=== PATIENT | female | born 1995 | race Caucasian/White ===

== ENCOUNTER 2021-10-12 00:18 | Day surgery (SDC) | payer OTHER, SELFPAY ==
[2021-10-11 15:03] VITALS: BMI 29.0
--- NOTE | 2021-10-11 15:03 | PC.NURSE ---
Report to the Outpatient Waiting Room, entrance under the green pavilion located off [facility], at time 0800 on date _10/12/21. OR Time: __1000 . - You and your visitor will be asked a series of questions to screen for COVID 19 for your protection. - Only one visitor is allowed at this time. - The patient visitor is requested to leave or wait in car when not with patient. - A mask is required within the hospital. Patients may have clear liquids (water, carbonated beverages, clear teas, apple juice) until 3 hours prior to surgery with a maximum of 20 ounces. - No food from midnight until time of surgery - Infants may have breast milk until 4 hours before surgery, formula 6 hours prior to surgery. - Children will be allowed to drink immediately following surgery. If applicable, please bring a bottle or sippy cup to assist with drinking. Juice, water, soda, and popsicles are readily available. For infants on formula, please bring formula the day of surgery. Pacifiers are allowed. Take the following medications with a SIP of water the morning of surgery: __BUPROPION, FLUEXETINE, PAIN MEDICATION IF NEEDED Medications to discontinue per physician NONE Date to take last dose Please no make-up, nail faroese, hairspray, perfume, deodorant, or body powder the day of surgery. No jewelry (including any body piercings) or valuables the day of surgery, leave them at home. Please take a shower or bath the night before, or the morning of, surgery with an antibacterial soap. Wear comfortable, loose fitting clothing. Children are encouraged to wear pajamas. - Jewelry must be removed prior to entering the operating room. Rings and piercings that are not removed may be cut off. - The hospital will not accept responsibility for valuables. - Please leave all valuables, including medications, at home the day of surgery. If you are going home after surgery, a licensed class b driver must drive you home. - NO public transportation without another adult. - We recommend that an adult stay with you for 24 hours following discharge. - We also recommend that you do not drive, make important decision, drink alcoholic beverages, or take any drugs that were not prescribed by your health care provider for at least 24 hours after your discharge time. For Pediatric surgeries, we recommend two adults accompany the child home (only one inside the building at this time). Follow any additional instructions given to you from your surgeon. If you or anyone in your household have experienced Covid symptoms in the past week, please notify your surgeon or the nurse liaison at the phone number below for possible testing. Telephone instructions given to PATIENT____and asked if any additional questions and then verbalized understanding. Patient advised to call surgeon office or pre surgery nurse liaison [phone] if any additional questions.
[2021-10-12] MEDS: ACETAMINOPHEN 500 MG TABLET 1000 MG PO (09:15)
[2021-10-12] MEDS: LACTATED RINGERS 1,000 ML 30 ML IV CONT (09:15)
[2021-10-12 09:19] VITALS: BP 124/80; PULSE 70; RESP 14; TEMP 36.8; O2SAT 100
--- NOTE | 2021-10-12 09:22 | P.PNAN_ITS ---
Anes - Initial Pre Proc Eval Procedure: Operation Date: 10/12/21 10:00 Proposed Procedures p Suction Dilatation and Curettage - Brandon Engel MD Date/Time: 10/12/21 09:22 Surgeon: Brandon Engel MD Pre Op Diagnosis: missed AB Patient Data Age: 26 Gender: F Height: 1.57 m Weight: 72 kg Allergies Allergy/AdvReac Type Severity Reaction Status Date / Time No Known Allergies Allergy Verified 10/11/21 14:53 Home Medications Medication Instructions Recorded Confirmed Type bupropion HCl 200 mg tablet,12 hr 200 mg PO BID 10/11/21 10/11/21 History sustained-release clonazepam 1 mg tablet 1 mg PO PRN PRN Anxiety 10/11/21 10/11/21 History fluoxetine 20 mg capsule 20 mg PO DAILY 10/11/21 10/11/21 History hydrocodone 5 mg-acetaminophen 325 1 tablet PO Q6-12H PRN Pain 10/11/21 10/11/21 History mg tablet quetiapine 100 mg tablet 150 mg PO HS PRN Sleep 10/11/21 10/11/21 History topiramate 100 mg tablet 100 mg PO BID 10/11/21 10/11/21 History Patient hx anesthesia problems: none Family hx anesthesia problems: none Results Review: All pre-operative results and documents have been reviewed as part of the pre- operative evaluation. [facility] Past Medical History Medical History ADHD Anxiety Bipolar disorder Depression Hx of migraines Social History Social History Smoking packs per day: 1 Smoking cigarettes per day: 20.0 Years smoked: 4 Smoking pack-years: 4.00 Smoking status: Former smoker Tobacco type: cigarettes Additional smoking assessment comments: MAR 2020 Alcohol intake: current Alcohol use details: 2 PER MONTH Substance use type: marijuana Other substance usage details: DAILY TO EVERY OTHER DAY Living arrangements: with family Anes - Eval Final PreProcedure Day of Procedure 10/12/21 09:22 Patient weight: obese Heart: regular rate and rhythm Lungs: clear to auscultation Airway: Mallampati scale class II Neurological: alert and oriented Last oral intake: >/= 8 hours ASA classification: III Emergent: no Anesthetic plan: proceed Anesthesia type and monitoring: general GIVS and standard monitoring Results Review: All pre-operative results and documents have been reviewed as part of the pre- operative evaluation. Informed Consent: The patient's anesthetic plan and its attendant risks and benefits were discussed with the patient/family/POA. Questions were solicited and answers provided to the satisfaction of the patient/family/POA.
[2021-10-12] MEDS: MIDAZOLAM HCL (*CRX) 2 MG/2 ML VIAL IV PUSH (09:31)
--- NOTE | 2021-10-12 09:48 | SUR.PREOP ---
DR BRYSON HAS WAIVED Rho IMMUNE GLOBULIN ORDER, PT IS CONFIRMED O+ BLOOD TYPE.
--- NOTE | 2021-10-12 09:49 | WPDHPUPDATE1 ---
History and Physical Update Update Date/Time: 10/12/21 09:49 History and Physical has been reviewed, including an updated exam of the patient. There are NO changes in the patient's condition. Risks, benefits, and alternatives have been discussed and questions answered. Patient agrees to proceed with procedure.
[2021-10-12] MEDS: LIDOCAINE HCL 1% PF 30 ML VIAL INFILTRATE (10:14)
[2021-10-12 10:23] VITALS: BP 104/63; PULSE 65; RESP 14; O2SAT 98
--- NOTE | 2021-10-12 10:35 | W.PM.PROC2 ---
Procedure Note - Detailed Date of Procedure 10/12/21 Pre-op Diagnosis missed AB Post-op Diagnosis Same Procedure Performed Suction D&C Surgeon Brandon Engel MD Anesthesia MAC Indications missed Findings normal-appearing vulva vagina and cervix to. Moderate amount of products conception within the uterus. 8 cm uterus Description of Procedure the patient was taken the operating room. She was prepped and draped in dorsal lithotomy position after induction of mac anesthesia. A speculum was placed in the vagina. Cervix grasped with tenaculum. The cervix was dilated to about 1 cm Using Arreguin dilators. A 8. Croatian curved curette was used to perform suction D&C. The curette was introduced and vacuum was applied. The curette was removed over all surfaces of the intrauterine cavity multiple times. This was done until all the surfaces were clear and had the familiar grainy texture they can be felt through the instrument. A sharp curette was then used to curettage all the surfaces. The suction cup was then reapplied 1 more time to remove any debris. The instruments were removed. The speculum and tenaculum were removed. The patient tolerated the procedure well. She was taken recovery room stable condition. Estimated Blood Loss -75.0 Drains No Packing No Pathology Yes Complications No immediate complications Condition Stable Disposition PACU
[2021-10-12 10:45] VITALS: BP 119/79; PULSE 60; RESP 20
[2021-10-12] MEDS: oxyCODONE HCL (*CRX) 5 MG TAB IR PO (10:48)
[2021-10-12 11:05] VITALS: BP 116/80; PULSE 75; RESP 20
== END 2021-10-12 11:11 | disposition home or self-care (01) ==
PROVIDERS: Visit Provider Obstetrics & Gynecology
PROC: (CPT 59820; principal; 2021-10-12 10:00)
DX: O02.1 Missed abortion (principal); F41.9 Anxiety disorder, unspecified; F90.9 Attention-deficit hyperactivity disorder, unspecified type; Z87.891 Personal history of nicotine dependence; F32.A Depression, unspecified; F31.9 Bipolar disorder, unspecified; F12.90 Cannabis use, unspecified, uncomplicated; J45.909 Unspecified asthma, uncomplicated
CPT/HCPCS: 59820; 88305; A9270; J2250; J2704; J3010; J7120

== ENCOUNTER 2022-12-06 09:47 | Outpatient (CLI) | payer OTHER, SELFPAY ==
[2022-12-06 11:22] LABS: Hematocrit 32.6 % (37.0-47.0); Hemoglobin 10.5 g/dL (12.0-15.0)
[2022-12-06 11:29] LABS: Glucose 1 Hour PP 50gm Dose 124 mg/dL
[2022-12-06 12:09] LABS: HIV 1/2 Ab P24 Ag Result Negative (Negative)
== END 2022-12-06 09:48 | disposition home or self-care (01) ==
PROVIDERS: Visit Provider Obstetrics & Gynecology
DX: O36.0130 Maternal care for anti-D [Rh] antibodies, third trimester, not applicable or unspecified (principal); Z36.89 Encounter for other specified antenatal screening
CPT/HCPCS: 36415; 82947; 85014; 85018; 85461; 86703; 86850; 86900; 86901; G0432

== ENCOUNTER 2023-02-18 11:45 | Outpatient (CLI) | payer OTHER, SELFPAY ==
[2023-02-18 13:03] LABS: Hematocrit 34.4 % (37.0-47.0); Hemoglobin 10.5 g/dL (12.0-15.0); Mean Corpuscular HGB Conc 30.5 g/dl (32-36); Mean Corpuscular Hemoglobin 24.6 pg (26-34); Mean Corpuscular Volume 80.6 fl (80-100); Mean Platelet Volume 11.2 fl (7.4-10.4); Platelet Count Result 336 k/mm3 (150-375); Red Blood Count 4.27 M/mm3 (4.2-5.4); Red Cell Distribution Width 15.8 % (11.5-14.5); White Blood Count 7.4 K/mm3 (4.5-10.0)
[2023-02-20 13:17] LABS: Rapid Plasma Reagin Non-Reactive (NonReactive)
== END 2023-02-18 11:46 | disposition home or self-care (01) ==
LOC: ANHLAB 11:47
PROVIDERS: Visit Provider Obstetrics & Gynecology
DX: Z34.93 Encounter for supervision of normal pregnancy, unspecified, third trimester (principal); Z3A.00 Weeks of gestation of pregnancy not specified
CPT/HCPCS: 36415; 85027; 86592; 86850; 86900; 86901

== ENCOUNTER 2023-02-20 05:30 | Inpatient (IN) | payer OTHER, SELFPAY ==
[2023-02-20] VITALS (76 sets, daily range): BP systolic 81–165; BP diastolic 20–127; PULSE 59–136; RESP 14–19; TEMP 36.5–37.3; O2SAT 96–100; BMI 40.3
[2023-02-20] MEDS: LACTATED RINGERS 1,000 ML 999 ML IV CONT ×2 (06:17→07:25)
--- NOTE | 2023-02-20 06:25 | LDADM ---
This patient, Viviana Aleman, was admitted to Labor/Delivery/Recovery 120 on 02/20/23 at 05:30. Plans for labor, pain management and were discussed with patient. Patient/family oriented to hospital policies and general routines including ID bracelet, bed and alarms, visiting hours, pain management, procedures, bathroom and other care routines, personal items, smoking policy, room service/diet and guest tray routines, infant security routines, and visiting hours. Patient/Family are encouraged to report perceived risks to care and to ask questions if they do not understand what they are told or what they should do. See OBIX for further documentation.
--- NOTE | 2023-02-20 07:11 | P.PNAN_ITS ---
Anes - Initial Pre Proc Eval Procedure: Operation Date: 02/20/23 07:30 Proposed Procedures p Section with Bilateral Tubal Ligation - Brandon Engel MD Date/Time: 02/20/23 07:11 Surgeon: Sanford Lorenz MD Pre Op Diagnosis: C/S Patient Data Age: 27 Gender: F Height: 1.57 m Weight: 100 kg Last Vital Signs Pulse 78 02/20/23 06:46 BP 126/66 02/20/23 06:46 O2 Del Method Room Air 02/20/23 06:20 Allergies Allergy/AdvReac Type Severity Reaction Status Date / Time No Known Allergies Allergy Verified 10/12/21 09:33 Home Medications Medication Instructions Recorded Confirmed Type fluoxetine 20 mg capsule 20 mg PO BID 10/11/21 02/20/23 History quetiapine 100 mg tablet 50 mg PO HS PRN Sleep 10/11/21 02/20/23 History buspirone 15 mg tablet 15 mg PO DAILY 01/30/23 02/20/23 History prenat.vits,mikal,tpz-fcsw-foqgc 1 tablet PO DAILY 01/30/23 02/20/23 History famotidine 20 mg tablet 20 mg PO DAILY 02/20/23 02/20/23 History Patient hx anesthesia problems: none Family hx anesthesia problems: none Results Review: All pre-operative results and documents have been reviewed as part of the pre- operative evaluation. [facility] Past Medical History Medical History ADHD Anxiety Bipolar disorder Depression Hx of migraines Family History Family History Grandparent Pancreatic cancer Grandparent Throat cancer Mouth cancer Social History Social History Smoking packs per day: 1 Smoking cigarettes per day: 20.0 Years smoked: 4 Smoking pack-years: 4.00 Smoking status: Former smoker Tobacco type: cigarettes and e-cigarettes/vaping Second hand tobacco smoke exposure: Yes Additional smoking assessment comments: MAR 2020 Alcohol intake: current Alcohol use details: 2 PER MONTH Substance use: never Substance use type: marijuana Other substance usage details: DAILY TO EVERY OTHER DAY Lack of Transportation: No Lack of Food: Never True Current Housing: I Have Housing Concerned About Future Housing: No Difficulty Paying Gas/Electric Bills: No Difficulty Paying for Meds: No Currently Unemployed: No Education: High School Diploma/GED Difficulty w/ Childcare or Family Care: No Living arrangements: with family Spiritual care concerns: No Anes - Eval Final PreProcedure Day of Procedure 02/20/23 07:11 Patient weight: morbidly obese Heart: regular rate and rhythm Lungs: clear to auscultation Airway: Mallampati scale class II Neurological: alert and oriented Last oral intake: >/= 8 hours ASA classification: III Emergent: no Anesthetic plan: proceed Anesthesia type and monitoring: regional spinal and standard monitoring Results Review: All pre-operative results and documents have been reviewed as part of the pre- operative evaluation. Informed Consent: The patient's anesthetic plan and its attendant risks and benefits were discussed with the patient/family/POA. Questions were solicited and answers p rovided to the satisfaction of the patient/family/POA.
--- NOTE | 2023-02-20 07:17 | PM.IMHP ---
H&P: HPI History of Present Illness Date/Time: 02/20/23 07:17 Chief Complaint: Term Narrative: this patient is a 27-year-old multiparous female with large for gestational age or macrosomic infant, she is 39 weeks gestation and presents for a elective primary . She desires female sterilization and bilateral tubal ligation will be performed also. She understands the procedure. Is been explained to her in detail. She understands there is risk. She understands that injuries may occur that result in hospitalization, more surgery, and severe illness. She understands there is risk of hemorrhage and infection. She denies any nausea, vomiting, fever, chills. She denies any chest pain or shortness of breath. Review of Systems Review of Systems: All systems reviewed & are unremarkable except as noted in HPI and below Constitutional: Constitutional: Denies chills, Denies fatigue, Denies fever(s) and Denies weakness Eyes: Eyes: Denies blurry vision, Denies change in vision, Denies loss of peripheral vision, Denies loss of vision, Denies other visual disturbances and Denies eye pain ENT: Denies vertigo, Denies dizziness, Denies hearing loss, Denies mouth pain, Denies nasal obstruction, Denies neck mass and Denies neck pain Cardiovascular: Cardiovascular: Denies chest pain, Denies diaphoresis, Denies syncope, Denies leg edema and Denies dyspnea Respiratory: Respiratory: Denies chest congestion, Denies cough, Denies hemoptysis, Denies dyspnea and Denies wheezing Gastrointestinal: Gastrointestinal: Denies abdominal pain, Denies constipation, Denies diarrhea, Denies nausea and Denies vomiting Genitourinary: Genitourinary: Denies hematuria, Denies change in libido, Denies nocturia, Denies genital lesions, Denies flank pain and Denies urinary urgency Musculoskeletal: Musculoskeletal: Denies abnormal gait, Denies back pain, Denies myalgias, Denies arthralgias, Denies joint swelling, Denies muscle weakness and Denies neck pain Integumentary/Breasts: Skin/Breast: Denies swelling, Denies breast pain, Denies breast mass, Denies dry skin, Denies nipple discharge, Denies unusual bruising and Denies jaundice Neurologic: Denies Neuro-related abnormal movements, Denies Abnormal speech present, Denies abnormal gait, Denies behavioral changes, Denies confusion, Denies vertigo, Denies dizziness, Denies syncope, Denies loss of vision, Denies memory loss, Denies convulsions and Denies weakness Psychiatric: Psychiatric: Denies abnormal sleep pattern, Denies behavioral changes, Denies change in libido, Denies confusion, Denies depression, Denies anhedonia and Denies memory loss Endocrine: Endocrine: Reports no additional endocrine complaints, Denies change in libido and Denies fatigue Hematologic/Lymphatic: Hematologic/Lymphatic: Reports no additional hematologic/lymphatic complaints Allergic/Immunologic: Allergic/Immunologic: Reports no additional allergic/immunologic complaints and Denies wheezing PMFSH Past Medical History Medical History ADHD Anxiety Bipolar disorder Depression Hx of migraines Family History Family History Grandparent Pancreatic cancer Grandparent Throat cancer Mouth cancer Social History Social History Smoking packs per day: 1 Smoking cigarettes per day: 20.0 Years smoked: 4 Smoking pack-years: 4.00 Smoking status: Former smoker Tobacco type: cigarettes and e-cigarettes/vaping Second hand tobacco smoke exposure: Yes Additional smoking assessment comments: MAR 2020 Alcohol intake: current Alcohol use details: 2 PER MONTH Substance use: never Substance use type: marijuana Other substance usage details: DAILY TO EVERY OTHER DAY Lack of Transportation: No Lack of Food: Never True Current Housing: I Have [facility]
--- NOTE | 2023-02-20 07:20 | WPDHPUPDATE1 ---
History and Physical Update Update Date/Time: 02/20/23 07:20 History and Physical has been reviewed, including an updated exam of the patient. There are NO changes in the patient's condition. Risks, benefits, and alternatives have been discussed and questions answered. Patient agrees to proceed with procedure.
[2023-02-20] MEDS: ceFAZolin 2 GM/D5W 50 ML 2 GM/50 ML BAG IVPB (07:28)
--- NOTE | 2023-02-20 08:21 | P.PCNOB_ITS ---
OB - Delivery Note Procedure Delivery date: 02/20/23 Pre-op diagnosis: Macrosomia and Other ( unwanted fertility) Post-op Diagnosis: Same ( large for gestational age) Induction method: None Procedure Performed: Repeat and Other ( Salpingectomy) Surgeon: Brandon Engel MD Anesthesia type: Spinal Description of Procedure/Findings: The patient was taken the operating room.? She was prepped and draped in dorsal supine position with a leftward tilt.? This was done after spinal anesthetic was applied.? A low-transverse skin incision was made and carried down till of the fascia with the knife.? The fascial incision was made with the knife.? The fascial incision was extended laterally with Ford scissors.? The fascia was tented upward superiorly and inferiorly the rectus muscles were dissected off bluntly.? The rectus muscles were the midline.? The preperitoneal fat and peritoneum were dissected open bluntly at the superior aspect of the rectus muscles.? The peritoneal incision was extended superior and inferior with good position of bladder.? The uterine incision was made with a scalpel down to the level of the amniotic cavity.? The amniotic cavity was entered bluntly.? The infant was delivered.? The cord was clamped and cut and the was handed off to waiting pediatric staff.? Cord bloods were obtained.? The placenta was removed manually.? The uterus was exteriorized.? The uterus was cleared of all clots, debris and membranes.? The uterus was closed in 0 Vicryl running lock fashion.? Each fallopian tube was grasped and raised with a [place].? With from the underlying venous structures.? The mesosalpinx between the tube and the rest the adnexa was cauterized and transected with LigaSure cautery.? It was performed from the distal tube near the ovary in a stepwise fashion towards the cornua.? The tube at the cornua was cauterized transected with LigaSure cautery.? This was performed in a bilateral fashion. The uterus was returned to the abdomen.? The gutters were cleared of all clots and debris.? The fascia was closed with 0 Vicryl running fashion.? The subcutaneous tissue was irrigated pinpoint bleeders were cauterized.? The skin was closed with subcuticular absorbable morena.? The skin incision line was covered with glue.? The patient tolerated the procedure well.? She has taken recovery room in stable condition.? Sponge lap and needle counts were correct x2.? Complications Complications: Estimated Blood Loss: 560 Pathology: None sent Complications: No immediate complications Condition: Stable [place] Baby Weeks of gestation at delivery: 39
[2023-02-20] MEDS: MORPHINE SULFATE INJ (*CRX) 10 MG/ML AMP 3 MG IV PUSH ×3 (09:47→10:47)
[2023-02-20] MEDS: OXYTOCIN 30 UNITS/NS 500 ML 30 UNITS/500 ML BAG 125 UNITS IV CONT (09:50)
[2023-02-20] MEDS: diphenhydrAMINE HCl INJ 50 MG/ML VIAL 25 MG IV PUSH (10:50)
[2023-02-20] MEDS: HYDROcodone/acetaminophen (*CRX) 10-325 MG TABLET 1 TAB PO ×2 (13:11→22:05)
[2023-02-20] MEDS: KETOROLAC 30 MG/ML VIAL (*BKC) IV PUSH (14:05)
[2023-02-20] MEDS: DEXTROSE 5%/0.45% SOD CHL 1,000 ML 125 ML IV CONT (14:05)
[2023-02-20] MEDS: SIMETHICONE 80 MG TAB.CHEW PO (16:30)
[2023-02-20] MEDS: FLUoxetine HCL 20 MG CAPSULE PO (16:30)
[2023-02-20] MEDS: HYDROcodone/acetaminophen (*CRX) 5-325 MG TABLET 1 TAB PO (17:21)
[2023-02-20] MEDS: LIDOCAINE 5% PATCH 1 PATCH TRANSDERM (19:20)
[2023-02-20] MEDS: POLYSACCHARIDE IRON COMPLEX 150 MG CAPSULE PO (19:20)
[2023-02-21] MEDS: SIMETHICONE 80 MG TAB.CHEW PO ×2 (04:30→20:12)
[2023-02-21] MEDS: HYDROcodone/acetaminophen (*CRX) 10-325 MG TABLET 1 TAB PO ×5 (04:30→20:12)
[2023-02-21] MEDS: KETOROLAC 30 MG/ML VIAL (*BKC) IV PUSH (04:35)
[2023-02-21 07:26] LABS: Basophils Percent Auto 0.2 % (0.2-1.2); Eosinophils Absolute Auto 0.2 K/mm3 (0-0.3); Eosinophils Percent Auto 2.6 % (0-4.4); Hematocrit 29.2 % (37.0-47.0); Hemoglobin 8.8 g/dL (12.0-15.0); Immature Granulocyte Absolute 0.06 K/mm3 (0.00-0.031); Immature Granulocyte Percent A 0.7 % (0-0.5); Lymphocytes Absolute Auto 0.86 K/mm3 (0.9-3.2); Lymphocytes Percent Auto 9.6 % (18.3-44.2); Mean Corpuscular HGB Conc 30.1 g/dl (32-36); Mean Corpuscular Hemoglobin 24.5 pg (26-34); Mean Corpuscular Volume 81.3 fl (80-100); Monocytes Absolute Auto 0.9 K/mm3 (0.1-0.6); Monocytes Percent Auto 10.2 % (2.6-8.5); Neutrophils Absolute Auto 6.9 K/mm3 (1.3-6.7); Neutrophils Percent Auto 76.7 % (45.5-73.1); Platelet Count Result 232 k/mm3 (150-375); Red Blood Count 3.59 M/mm3 (4.2-5.4); Red Cell Distribution Width 15.9 % (11.5-14.5); White Blood Count 8.9 K/mm3 (4.5-10.0)
[2023-02-21 08:23] VITALS: BP 110/56; PULSE 60; RESP 20; TEMP 36.1; O2SAT 99
--- NOTE | 2023-02-21 09:07 | PM.OBPNVD ---
OB - PN: Subj Subjective Date/time seen: 02/21/23 09:07 Interval history: POD#1 Pain somewhat controlled, improved from overnight Normal diet Emptying bladder spontaneously No flatus OB - PN: Obj Data Labs 02/21/23 07:17 Labs: Laboratory Results - last 24 hr 02/21/23 07:17 WBC 8.9 RBC 3.59 L Hgb 8.8 L Hct 29.2 L MCV 81.3 MCH 24.5 L MCHC 30.1 L RDW 15.9 H Plt Count 232 MPV 11.0 H Immature Gran % (Auto) 0.7 H Neut % (Auto) 76.7 H Lymph % (Auto) 9.6 L [place] % (Auto) 10.2 H Eos % (Auto) 2.6 Baso % (Auto) 0.2 Lymph # (Auto) 0.86 L [place] # (Auto) 0.9 H Eos # (Auto) 0.2 Baso # (Auto) 0.0 Abs Immat Gran (auto) 0.06 H Absolute Neuts (auto) 6.9 H Absolute Nucleated RBC 0.0 Nucleated RBC % 0.0 OB - PN A/P Assessment and Plan (1) Bipolar disorder: Code(s): F31.9 - Bipolar disorder, unspecified Status: Acute Assessment and Plan: restart clonazepam and wellbutrin today Plan day: 1 Plan: routine care Time Spent With Patient Time: Total time spent is greater than 50% in coordination of care (as documented) at patient's floor/unit and/or counseling patient: Review of Systems Review of Systems: All systems reviewed & are unremarkable except as noted in HPI and below Exam Const: General: cooperative, healthy appearing, comfortable and no acute distress Orientation/consciousness: oriented to person, oriented to place and oriented to time HENMT: Head: normal to inspection Ears: external ears normal Face/Nose/Sinus: Normal external nose present and normal facial exam Face and sinus: normal facial exam Eyes: General: appearance normal, both eyes and all related structures Neck: Neck: normal visual inspection, trachea midline and supple Resp: Auscultation: clear to auscultation bilaterally, no crackles, no rales, no rhonchi and no wheezes Cardio: Rate: regular rate Rhythm: regular rhythm Heart sounds: no click, no murmurs and no rubs GI: GI Palp: No abdominal tenderness, No Soft to palpation, No Tenderness to palpation present (GI) and No Palpable mass present Auscultation: normal bowel sounds Other: pressure bandage over incision, c/d/i Skin: General skin exam: normal color and no rashes or lesions noted Neuro: General: oriented to person, oriented to place and oriented to time Extrem: General: normal to inspection, no joint enlargement, no clubbing, cyanosis or edema, no pedal edema and no calf tenderness Psych: Appearance: grossly normal Mental Status: mental status grossly normal Speech and movement: Normal speech and movement present
[2023-02-21] MEDS: busPIRone HCL 5 MG TABLET 15 MG PO (09:09)
[2023-02-21] MEDS: FLUoxetine HCL 20 MG CAPSULE PO ×2 (09:10→17:19)
[2023-02-21] MEDS: FAMOTIDINE 20 MG TABLET PO (09:10)
[2023-02-21] MEDS: DOCUSATE SODIUM 100 MG CAPSULE PO (09:11)
[2023-02-21] MEDS: POLYSACCHARIDE IRON COMPLEX 150 MG CAPSULE PO ×2 (09:11→17:19)
[2023-02-21] MEDS: MULTIVIT/MIN/PREN/FOL AC/IRON TABLET 1 TAB PO (09:11)
[2023-02-21] MEDS: IBUPROFEN 600 MG TABLET PO ×2 (12:53→20:12)
--- NOTE | 2023-02-21 14:18 | WPDANLDPN2 ---
Anes-Prog Note L&D Date/Time: 02/21/23 14:18 Comfortable throughout: section Neuraxial method: spinal Epidural/Spinal procedure site: clean & non-tender Neuro status: Neuro function grossly intact. Cardiovascular status: normal Respiratory status: normal Airway patency: baseline Mental status: baseline Post-Op hydration status: normal Vital Signs: Last Vital Signs Temp 97.0 F L 02/21/23 08:23 Pulse 60 02/21/23 08:23 Resp 20 02/21/23 08:23 BP 110/56 L 02/21/23 08:23 Pulse Ox 99 02/21/23 08:23 O2 Del Method Room Air 02/20/23 19:20 Pain score (VAS): 0/10 I/O: Intake & Output 02/20/23 02/21/23 02/21/23 23:59 07:59 15:59 Intake Total 1400 550 Output Total 900 1200 Balance 500 -650 Post-procedural complaints: none Patient feedback: Patient satisfied with anesthetic care.
--- NOTE | 2023-02-21 14:19 | WPDANLDNPN2 ---
Anes-Prog Note L&D-Neuraxial Date/Time: 02/21/23 14:19 Neuraxial medications: intrathecal PF morphine Opiod-related complaints: none Patient feedback: Patient satisfied with post-operative pain management.
--- NOTE | 2023-02-21 17:01 | WPDANLDNPN2 ---
Anes-Prog Note L&D-Neuraxial Date/Time: 02/21/23 17:01 Patient feedback: Patient satisfied with post-operative pain management.
--- NOTE | 2023-02-21 17:01 | WPDANLDPN2 ---
Anes-Prog Note L&D Date/Time: 02/21/23 17:01 Comfortable throughout: section Neuraxial method: spinal Epidural/Spinal procedure site: clean & non-tender Neuro status: Neuro function grossly intact. Cardiovascular status: normal Respiratory status: normal Airway patency: baseline Mental status: baseline Post-Op hydration status: normal Vital Signs: Last Vital Signs Temp 36.1 C L 02/21/23 08:23 Pulse 60 02/21/23 08:23 Resp 20 02/21/23 08:23 BP 110/56 L 02/21/23 08:23 Pulse Ox 99 02/21/23 08:23 O2 Del Method Room Air 02/21/23 09:35 Pain score (VAS): 0 I/O: Intake & Output 02/21/23 02/21/23 02/21/23 07:59 15:59 23:59 Intake Total 550 Output Total 1200 Balance -650 Post-procedural complaints: none Patient feedback: Patient satisfied with anesthetic care.
[2023-02-21 19:35] VITALS: BP 105/73; PULSE 72; RESP 18; TEMP 36.6; O2SAT 100
[2023-02-21] MEDS: clonazePAM (*CRX) 0.5 MG TABLET PO (20:12)
[2023-02-21] MEDS: buPROPion HCL SR (12HR) 100 MG TABCR PO (20:12)
[2023-02-22] MEDS: HYDROcodone/acetaminophen (*CRX) 10-325 MG TABLET 1 TAB PO
[2023-02-22] MEDS: IBUPROFEN 600 MG TABLET PO (04:35)
[2023-02-22] MEDS: HYDROcodone/acetaminophen (*CRX) 5-325 MG TABLET 1 TAB PO ×2 (04:35→08:12)
[2023-02-22] MEDS: SIMETHICONE 80 MG TAB.CHEW PO (04:35)
[2023-02-22 07:35] VITALS: BP 118/65; PULSE 70; RESP 16; TEMP 36.5; O2SAT 99
--- NOTE | 2023-02-22 07:53 | PC.NURSE ---
Patient was given the opportunity to view the discharge video Mother & Baby Care, The First Two Weeks and to ask questions. Patient declined viewing the video and has been given the mother/baby guide for home reference.
[2023-02-22] MEDS: FAMOTIDINE 20 MG TABLET PO (08:11)
[2023-02-22] MEDS: POLYSACCHARIDE IRON COMPLEX 150 MG CAPSULE PO (08:11)
[2023-02-22] MEDS: MULTIVIT/MIN/PREN/FOL AC/IRON TABLET 1 TAB PO (08:11)
[2023-02-22] MEDS: busPIRone HCL 5 MG TABLET 15 MG PO (08:12)
[2023-02-22] MEDS: buPROPion HCL SR (12HR) 100 MG TABCR PO (08:12)
[2023-02-22] MEDS: FLUoxetine HCL 20 MG CAPSULE PO (08:38)
[2023-02-22] MEDS: TETANUS,DIPHTHERIA,AC PERTUSSIS ADULT (0.5 ML) BOOSTRIX IM (08:41)
--- NOTE | 2023-02-22 11:22 | PM.OBPNVD ---
OB - PN: Subj Subjective Date/time seen: 02/22/23 11:22 Interval history: POD#2 Pain controlled improved Normal diet Emptying bladder spontaneously Passing flatus OB - PN: Obj Data Labs 02/21/23 07:17 OB - PN A/P Plan day: 2 Plan: routine care and discharge home Comments: f/u 1 week for incision check Time Spent With Patient Time: Total time spent is greater than 50% in coordination of care (as documented) at patient's floor/unit and/or counseling patient: Review of Systems Review of Systems: All systems reviewed & are unremarkable except as noted in HPI and below Exam Const: General: cooperative, healthy appearing, comfortable and no acute distress Orientation/consciousness: oriented to person, oriented to place and oriented to time HENMT: Head: normal to inspection Ears: external ears normal Face/Nose/Sinus: Normal external nose present and normal facial exam Face and sinus: normal facial exam Eyes: General: appearance normal, both eyes and all related structures Neck: Neck: normal visual inspection, trachea midline and supple Resp: Auscultation: clear to auscultation bilaterally, no crackles, no rales, no rhonchi and no wheezes Cardio: Rate: regular rate Rhythm: regular rhythm Heart sounds: no click, no murmurs and no rubs GI: GI Palp: No abdominal tenderness, No Soft to palpation, No Tenderness to palpation present (GI) and No Palpable mass present Auscultation: normal bowel sounds Other: c/d/i Skin: General skin exam: normal color and no rashes or lesions noted Neuro: General: oriented to person, oriented to place and oriented to time Extrem: General: normal to inspection, no joint enlargement, no clubbing, cyanosis or edema, no pedal edema and no calf tenderness Psych: Appearance: grossly normal Mental Status: mental status grossly normal Speech and movement: Normal speech and movement present
--- NOTE | 2023-02-22 11:33 | PM.OBDSVD ---
DS: Admitting Diagnosis Discharge Date 02/22/23 Admitting Diagnosis primary c section, suspected LGA DS: Discharge Diagnosis Discharge Diagnosis (1) S/P : Code(s): Z98.891 - History of uterine scar from previous surgery Status: Acute (2) Bipolar disorder: Code(s): F31.9 - Bipolar disorder, unspecified Status: Acute OB - DS: Summary OB Procedures : None OB Procedures Intrapartum: and Tubal ligation OB Procedures: : None Peripartum Data Procedures: Procedures Operation Date: 02/20/23 07:30 Actual Procedure Side Surgeon p Section Sanford Lorenz MD Time Spent with Patient Time attestation: Total time spent providing and/or coordinating discharge services: DS: Data Data Completed and Pending Completed studies during hospitalization: Pending at discharge 02/20/23 08:10 Surgical [PTH] Routine Discharge Plan Discharge Attending physician on discharge: Sanford Lorenz Discharging Clinician: Sanford Lorenz Patient Disposition: Home, Self-Care Activity: may shower, as tolerated and pelvic rest Diet: as tolerated Patient Instructions: Antibiotic Form Stand Alone Forms: General Discharge Information Follow-up/Referrals: Sanford Lorenz MD [Physician] - 1 Week Discharge Medications: New hydrocodone-acetaminophen 5-325 mg Tablet 1 tablet PO Q3H PRN (Reason: Moderate Pain (4-6)) Qty: 18 0RF clonazepam 0.5 mg Tablet 0.5 mg PO Q12H PRN (Reason: Anxiety) Qty: 60 3RF bupropion HCl [Wellbutrin SR] 100 mg Tablet Sustained-Release 12 Hr 100 mg PO Q12HR Qty: 60 3RF ibuprofen 600 mg Tablet 600 mg PO Q6H PRN (Reason: Cramping) Qty: 60 0RF Continued buspirone [BuSpar] 15 mg Tablet 15 mg PO DAILY #2 Tablet 1 tablet PO DAILY quetiapine 100 mg tablet 50 mg PO HS PRN (Reason: Sleep) fluoxetine 20 mg capsule 20 mg PO BID Discontinued famotidine 20 mg Tablet 20 mg PO DAILY Date of admission: 02/20/23 05:30 Primary Care Provider: PHYSICIAN,[employer] Admitting Provider: Sanford Lorenz Attending physician on admission: Sanford Lorenz Condition: Stable
[2023-02-23 11:25] VITALS: BP 110/62; PULSE 69; RESP 18; TEMP 36.6; O2SAT 98
== END 2023-02-22 12:40 | disposition home or self-care (01) | DRG 539 ==
LOC: ANHLDR 05:40 → ANHOB2 11:04
PROVIDERS: Admitting Provider Obstetrics & Gynecology; Visit Provider Obstetrics & Gynecology
PROC: 10D00Z1 Extraction of Products of Conception, Low, Open Approach (ICD-10-PCS; CPT 59514; principal; 2023-02-20 07:30)
DX: O36.63X0 Maternal care for excessive fetal growth, third trimester, not applicable or unspecified (principal); Z30.2 Encounter for sterilization; O99.344 Other mental disorders complicating childbirth; F41.8 Other specified anxiety disorders; Z3A.39 39 weeks gestation of pregnancy; Z37.0 Single live birth; F31.9 Bipolar disorder, unspecified; Z87.891 Personal history of nicotine dependence
CPT/HCPCS: 36415; 85025; 88302; 90715; A9270; J0690; J1200; J1885; J2270; J2274; J2371; J2405; J2590; J7120